=== PATIENT | male | born 1990 ===

== ENCOUNTER 2018-01-25 13:07 | Emergency (ER) | payer OTHER ==
[~2018-01-25] VITALS: Ht 177.8 cm; Wt 81.2 kg
--- NOTE | 2018-01-25 14:04 | Diagnostic Imaging Report ---
Right knee series. Indication: Knee pain. Fall 3 days prior. Findings: Alignment of the knee appears normal. There is no evidence of an acute fracture. There is no significant knee joint effusion. There is no focal soft tissue abnormality. Impression: 1. Negative radiographs of the right knee. Dictated by: Dictated on workstation # [id number]
--- NOTE | 2018-01-25 14:05 | Diagnostic Imaging Report ---
Indication: Foot pain. Fall 3 days prior. Dorsal foot pain. Findings: Alignment of the foot appears normal. There are no radiographic findings of an acute fracture. There is no dislocation. There is no focal soft tissue abnormality. Impression: Negative radiographs of the right foot. Dictated by: Dictated on workstation # [id number]
[2018-01-25] MEDS ORDERED: MELO7.5T46 PO (14:27)
[2018-01-25] MEDS ORDERED: HYDR-4226 PO (14:27)
--- NOTE | 2018-01-25 14:27 | ED Lower Extremity ---
General Chief Complaint: Lower Extremity Stated Complaint: R KNEE PAIN AFTER FALLING AT HOME Nursing Triage Note: PATIENT HERE FOR COMPLAINTS OF RIGHT KNEE PAIN. HE HAS HAD KNEE PROBLEMS IN THE PAST AND SAW A DOCTOR IN [place] AT ONE TIME. HE HAD IMAGING DONE THERE AND WAS TOLD HE NEEDED SURGERY BUT THIS WAS NEVER DONE. HE WAS PRESCRIBED LYRICA BY THE SAME DOCTOR IN [place]. ON FRIDAY HE FELL DOWN 3 STEPS AT HOME AND HIS PAIN HAS BEEN MUCH WORSE SINCE THEN. HE IS LIMPING AND NOT GETTING PAIN RELIEF FROM THE LYRICA. Nursing Sepsis Screen: No Definite Risk Source: patient Exam Limitations: no limitations History of Present Illness Date Seen by Provider: Jan 25, 2018 Time Seen by Provider: 14:23 Initial Comments To ER with reports of right knee pain and right foot pain. He's had some ongoing right knee pain and had an MRI of the right knee done in [place] last year. He was advised that he had findings that would need surgery. He has this report with him and it does in fact report a meniscus injury of the medial horn. He fell 2-3 days ago and has had worsening pain since then. He is on Lyrica which does help to some degree but not as much as he would like. He is a [employer] student. Onset: other (getting worse) Severity: moderate Pain/Injury Location: right knee Method of Injury: fell Modifying Factors: Worse With Movement Allergies and Home Medications Patient Home Medication List Home Medication List Reviewed: Yes Review of Systems Constitutional: see HPI EENTM: see HPI Respiratory: no symptoms reported Cardiovascular: no symptoms reported Genitourinary: no symptoms reported Musculoskeletal: see HPI Skin: no symptoms reported Psychiatric/Neurological: No Symptoms Reported Past Pbqphio-[id number] Hx Patient Social History Alcohol Use: Occasionally Uses Recreational Drug Use: No Smoking Status: Current Everyday Smoker Type Used: Cigarettes 2nd Hand Smoke Exposure: Yes Recent Foreign Travel: Yes Contact w/Someone Who Travel: Yes Recent Infectious Disease Expo: No Recent Hopitalizations: No Seasonal Allergies Seasonal Allergies: No Past Medical History Surgeries: No Respiratory: No Cardiac: No Neurological: No Genitourinary: No Gastrointestinal: No Musculoskeletal: No Endocrine: No HEENT: No Cancer: No Psychosocial: No Integumentary: No Blood Disorders: No Physical Exam Vital Signs Vital Signs - First Documented 01/25/18 13:13 Temp 97.2 Pulse 91 Resp 22 B/P (MAP) 126/82 (97) Pulse Ox 95 Capillary Refill : Less Than 3 Seconds Height, Weight, BMI Height: 5'10.00" Weight: 179lbs. 0oz. [id number]; BMI Method:Stated General Appearance: WD/WN, no apparent distress HEENT: PERRL/EOMI, normal ENT inspection Neck: non-tender, full range of motion Respiratory: no respiratory distress, no accessory muscle use Hips: bilateral hip non-tender, bilateral hip normal inspection, bilateral hip normal range of motion Legs: bilateral leg non-tender, bilateral leg normal inspection, bilateral leg normal range of motion Knees: right knee pain, right knee other (no ecchymosis, no swelling, no deformity) Ankles: bilateral ankle non-tender, bilateral ankle normal inspection, bilateral ankle normal range of motion Feet: bilateral foot non-tender, bilateral foot normal inspection, bilateral foot normal range of motion Neurologic/Psychiatric: alert, normal mood/affect, oriented x 3 Skin: normal color, warm/dry Progress/Results/Core Measures Results/Orders My Orders Orders - DAVID KAISER APRN Knee, Right, 3 Views (01/25/18 13:26) Foot, Right, 3 View (01/25/18 13:49) Vital Signs/I&O 01/25/18 13:13 Temp 97.2 Pulse 91 Resp 22 B/P (MAP) 126/82 (97) Pulse Ox 95 Blood Pressure Mean: 97 Departure Impression Primary Impression: Injury of meniscus of right knee Disposition: 01 HOME, SELF-CARE Condition: Stable Departure-Patient Inst. Decision time for Depature: 14:25 Referrals: NO,LOCAL PHYSICIAN (PCP) Primary Care Physician DIAMANTE ALTAMIRANO MD Patient Instructions: Knee Arthroscopy (DC), Knee Pain Add. Discharge Instructions: 1. Pain medication as directed. Call Dr. Altamirano tomorrow to make an appointment to be seen. All discharge instructions reviewed with patient and/or family. Voiced understanding. Scripts Meloxicam (Meloxicam) 7.5 Mg Tablet 7.5 MG PO DAILY, #30 TAB Prov: DAVID KAISER APRN 01/25/18 Hydrocodone/Acetaminophen ([place] 5-325 Tablet) 1 Each Tablet 1 EACH PO Q6H PRN for PAIN-MODERATE MDD 10, #10 TAB Prov: DAVID KAISER APRN 01/25/18 DAVID KAISER APRN Jan 25, 2018 14:27
[2018-01-25 14:30] VITALS: BP 126/82
== END 2018-01-25 14:39 | disposition home or self-care (01) ==
LOC: ER 13:09
DX: S83.241A Other tear of medial meniscus, current injury, right knee, initial encounter (principal); F17.210 Nicotine dependence, cigarettes, uncomplicated; W19.XXXA Unspecified fall, initial encounter
CPT/HCPCS: 73562; 73630